=== PATIENT | female | born 1960 | race Caucasian/White ===

== ENCOUNTER 2017-10-02 17:40 | Emergency (ER) | payer BC ==
[2017-10-02 18:19] LABS: #Lymphocytes 0.6 thou/uL (1.20-3.40); #Monocytes 0.4 thou/uL (0.11-0.59); #Neutrophils 3.5 thou/uL (1.40-6.50); %Lymphocytes 12.7 % (21.0-51.0); %Monocytes 8.5 % (0.0-10.0); %Neutrophils 76.8 % (42.0-75.0); Hemoglobin 14.2 g/dL (12.0-16.0); Mean Corpuscular HGB CONC 33.1 g/dL (32.0-36.0); Mean Corpuscular Volume 90.7 fl (81.0-99.0); Mean Platelet Volume 11.2 fL (7.4-10.4); Platelet Count 183 thou/uL (130-400); RBC Distribution Width 11.3 % (11.5-14.5); Red Blood Cell (RBC) Count 4.74 mill/uL (4.20-5.40); White Blood Cell (WBC) Count 4.6 thou/uL (4.8-10.8)
[2017-10-02] MEDS ORDERED: Nitroglycerin 0.4 MG TAB (25 Tab Bottle) ONE (18:20)
[2017-10-02 18:36] LABS: ALT (SGPT) 24 U/L (8-55); AST (SGOT) 24 U/L (5-34); Albumin 4.2 g/dL (3.5-5.0); Alkaline Phosphatase 58 U/L (40-150); Anion Gap 17 mmol/L (10-20); BUN (Urea Nitrogen) 16 mg/dL (9.8-20.1); Bilirubin, Total 0.5 mg/dL (0.2-1.2); Calc. Creatinine Clearance 0 mL/min (70-130); Calcium 9.3 mg/dL (7.8-10.44); Carbon Dioxide 26 mmol/L (22-29); Chloride 97 mmol/L (98-107); Estimated GFR-MDRD 86; Globulin 2.6 g/dL (2.4-3.5); Glucose 92 mg/dL (70-105); Potassium 3.6 mmol/L (3.5-5.1); Protein, Total 6.8 g/dL (6.0-8.3); Sodium 136 mmol/L (136-145)
[2017-10-02 18:37] LABS: CKMB 0.7 ng/mL (0-6.6); Troponin I Less than 0.010 ng/mL (< 0.028)
--- NOTE | 2017-10-02 18:42 | RAD ---
CHEST TWO VIEWS 10/02/17 HISTORY: Chest pain. COMPARISON: None. FINDINGS: Chest two views: Normal cardiac silhouette. Pulmonary vessels and hilum are normal. Costophrenic angles are clear. No consolidation or mass. No pneumothorax. Mild loss of the superior end plate vertebral body height of thoracic spine at approximately the T7 level. Findings are nonspecific. IMPRESSION: 1. No acute cardiopulmonary process. 2. Nonspecific mild loss of vertebral body height at approximately the T7 level. POS: [facility]
[2017-10-02] MEDS ORDERED: Famotidine 20 MG TAB ONE (19:32)
[2017-10-02] MEDS ORDERED: Metoprolol Tartrate 25 MG TAB ONE (19:43)
--- NOTE | 2017-11-01 13:40 | EKG ---
Test Reason : Blood Pressure : / mmHG Vent. Rate : 078 BPM Atrial Rate : 078 BPM P-R Int : 136 ms QRS Dur : 060 ms QT Int : 352 ms P-R-T Axes : 066 026 029 degrees QTc Int : 401 ms Normal sinus rhythm Confirmed by GHAZALA RIVAS ([id number]), advertising editor MARTHA FISHER ([id number]) on 11/01/2017 1:40:14 PM Referred By: Confirmed By:GHAZALA RIVAS
== END 2017-10-02 19:59 | disposition home or self-care (01) ==
LOC: SCSER 17:40
DX: R07.2 Precordial pain (principal)
CPT/HCPCS: 36415; 71046; 80053; 82553; 84484; 85025; 85379; 87804; 93005; 94760

== ENCOUNTER 2018-03-17 15:41 | Outpatient (CLI) | payer BC | END 2018-03-17 15:42 | disposition home or self-care (01) | LOC: BICMAMMO 15:41 | PROVIDERS: ATTEND Obstetrics & Gynecology | DX: Z12.31 Encounter for screening mammogram for malignant neoplasm of breast (principal); Z78.0 Asymptomatic menopausal state; M85.89 Other specified disorders of bone density and structure, multiple sites; Z80.3 Family history of malignant neoplasm of breast | CPT/HCPCS: 77063; 77067; 77080 ==

== ENCOUNTER 2022-07-17 08:24 | Outpatient (CLI) | payer OTHER | END 2022-07-17 08:25 | disposition home or self-care (01) | LOC: NM 08:24 | PROVIDERS: ATTEND Internal Medicine | DX: E05.00 Thyrotoxicosis with diffuse goiter without thyrotoxic crisis or storm (principal) | CPT/HCPCS: 78014; A9509 ==